=== PATIENT | female | born 1985 ===

== ENCOUNTER 2025-06-26 05:10 | Day surgery (SDC) | payer OTHER ==
[2025-06-26] MEDS ORDERED: PROTONIX20 MG PO (08:23)
[2025-06-26] MEDS ORDERED: DIPHENHYDRAMINE HCL 50 MG/ML VIAL 1ML IV ONE (08:30)
[2025-06-26] MEDS ORDERED: MIDAZOLAM HCL/PF 5 MG/ML VIAL IV ONE (08:30)
== END 2025-06-26 09:40 | disposition home or self-care (01) ==
LOC: AMB-ENDOS 05:10
PROVIDERS: ATTEND Surgery
DX: K21.9 Gastro-esophageal reflux disease without esophagitis (principal); K44.9 Diaphragmatic hernia without obstruction or gangrene; R10.13 Epigastric pain; E66.09 Other obesity due to excess calories